=== PATIENT | male | born 1985 | race Caucasian/White ===

== ENCOUNTER → 2018-03-10 09:22 | Outpatient (CLI) | payer OTHER, SELFPAY ==
[2015-07-11 14:18] VITALS: BMI 36.3
[2018-03-10 10:57] LABS: Anion Gap 8 (5-15); BUN 19 mg/dL (7-18); BUN/Creat Ratio 20.3 RATIO (10-20); Calcium,Total 8.3 mg/dL (8.5-10.1); Chloride 104 mmol/L (98-107); Cholesterol 159 mg/dL (200); Creatinine, Serum 0.94 mg/dL (0.70-1.30); EST Glomerular Filtration Rate 98 mL/min (>60); Est Glom Filt Rate - Afr Amer 118 mL/min (>60); Glucose 84 mg/dL (74-106); High Density Lipoprotein 33 mg/dL; Potassium 3.7 mmol/L (3.5-5.1); Sodium Level 138 mmol/L (136-145); Thyroid Stim Hormone (TSH) 1.38 uIU/mL (0.358-3.74); Triglycerides 87 mg/dL; Very Low Density Lipoprotein 17 mg/dL (5-40)
== END ==
PROVIDERS: Family Provider Family Medicine; PCP Family Medicine; Visit Provider Family Medicine
DX: Z00.00 Encounter for general adult medical examination without abnormal findings (principal)
CPT/HCPCS: 36415; 80048; 80061; 84443

== ENCOUNTER → 2018-10-02 | Outpatient (CLI) | payer OTHER, SELFPAY ==
[2018-10-02 11:46] VITALS: BMI 36.3
--- NOTE | 2018-10-02 11:59 | RAD_ITS ---
STUDY: X-RAY - RIGHT ANKLE REASON FOR EXAM: Male, 33 years old. Pain and swelling posteriorly TECHNIQUE: 3 view(s) of the ankle. COMPARISON: None. FINDINGS: Normal visualized distal tibia and fibula. Normal medial and lateral malleoli. Normal tibiotalar articulation and ankle mortise. Normal visualized talus and calcaneus. The visualized subtalar, talonavicular, calcaneocuboid and tarsal articulations are normal. The soft tissue structures are unremarkable. RAD/Ankle min 3 Views IMPRESSION: Normal x-ray examination of the ankle. Electronically Signed: Narciso Sweeney MD at 12:48 EDT , Service support ,
== END | disposition home or self-care (01) ==
LOC: HPRAD 11:58
PROVIDERS: Family Provider Family Medicine; PCP Family Medicine; Referring Provider Orthopaedic Surgery; Visit Provider Orthopaedic Surgery
DX: M25.571 Pain in right ankle and joints of right foot (principal)
CPT/HCPCS: 73610

== ENCOUNTER 2018-11-20 16:30 | Outpatient (RCR) | payer OTHER, SELFPAY ==
[2018-10-02 11:46] VITALS: BMI 36.3
--- NOTE | 2018-10-23 12:07 | HP.PTEVAL ---
Patient's Visit Information MARSHALL BARAHONA is a 33 year old M referred to Physical Therapy by Joe Whitaker DO with a diagnosis of R achilles tendonitis. Date of Evaluation: 10/09/18 Physical Therapist: Maximiliano Platt DPT - Visit Plan Frequency: 1-2x /Week Duration: 4 Weeks Plan: Start with graston to achilles, stretching to achilles G/S, eccentric loading and US as needed. - Subjective Findings: Pt. is here today for his initial evaluation for his achilles tendonitis. Pt. reports having progressively worsening pain for 4-6 month. pt. reports no mechanism of injury. Pt. denies N/T. Pt. reports increased tenderness with walking, initially walking, and stretching his achilles. 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 Pt. has done some exercise, but not much. Pt. is hopeful to get back to all recreational activiteis without limitations. - Pain Rt achilles tendon Pain Intensity (Out of 10): 2 Pain Intensity Range: 1, 4 - Objective POSTURE: Pt. has slight equinus positioning of foot, slight pes planus in stance. with knee valgus positiononig. PALPATION: Pt. has increased tendereness with palpation of achilles. He does have a inctrased tissue mass at mid achilles tendon and is tender in this region. NEURO: Pt. has normal sensation and DTR of bilaterally. ROM: Pt. has decreased ROM of R ankle DF 8deg. Rest is normal. Normal L ankle ROM. MMT: Pt. has normal ankle strength bilaterally except 5-/5 R plantar flexion (Mild incerase in symptoms with eccentric lowering). GAIT: Pt. has hip ER, vaglus knee positoning, over pronation in stance phase. Pt. has antalgic pattern. STAIRS: increased difficulty with descending, early heel off. SPECIAL TESTING: Pt. negative for all ankle/foot special testing. - Goals Goal 1:: Pt. to be I with HEP. Goal Time Frame: 4-6 Weeks Goal 2:: Pt. to have increased ankle ROM of R ankle to 15deg of DF. Goal Time Frame: 4-6 Weeks Goal 3:: Pt. to walking with increased pattern with out increase in symptoms. Goal Time Frame: 4-6 Weeks Goal 4:: Pt. to have no pain with palpation of R achilles tendon. Goal Time Frame: 4-6 Weeks Goal 5:: Pt. to complete all ADLs and recreational activities without increase in symptoms. Goal Time Frame: 4-6 Weeks - Rehabilitation Potential Physical Therapy Diagnosis: Pt. has signs and symptoms lf achilles tendonitis. Pt. would benefit from PT to increase achilles tendon lenfth, strength adn controlled eccentric strengthening. Rehabilitation Potential: Excellent - Anticipated Interventions Patient/Client Instruction: Educate patient on: Condition, Plan of Care, Risk Factors, Benefits of Fitness Program For the Purpose of:: To facilitate caregiver knowledge, To improve self management, To prevent re-injury, To improve ability to perform tasks related to life management, To improve tolerance to ADL's Therapeutic Exercise to Include: Strength training, Power training, Balance training, Flexibilty training, Gait and locomotor training, Passive ROM For the Purpose of:: To decrease pain, To increase ROM, To improve nutrient delivery to tissue, To improve muscle performance and motor function, To improve gait and locomotor functions, To improve health of tissue, To decrease soft tissue restriction, To increase flexibility/ROM Manual Therapy Techniques to Include: Mobilization, Functional dry needling, Soft tissue mobilization For the Purpose of:: To decrease pain, To decrease swelling/inflammation, To increase ROM Ultrasound (thermal/non thermal): Yes For the Purpose of:: To decrease pain, To decrease swelling/inflammation, To increase ROM Thank you for the opportunity to evaluate your patient. For Medicare and Medicare HMO plans, please review the plan of care and approve it. It will need to be FAXED BACK to us at [phone] for Medicare purposes. For Medicare only, by signing this I certify the plan of care. Please let me know if there are questions or concerns regarding this plan of care. Physician Signature: Date:
== END 2018-11-20 19:00 | disposition home or self-care (01) ==
LOC: PT 16:30
PROVIDERS: Family Provider Family Medicine; PCP Family Medicine; Referring Provider Orthopaedic Surgery; Visit Provider Orthopaedic Surgery
DX: M76.61 Achilles tendinitis, right leg (principal)
CPT/HCPCS: 97035; 97110; 97161

== ENCOUNTER → 2021-02-16 16:24 | Outpatient (CLI) | payer OTHER, SELFPAY ==
--- NOTE | 2021-02-16 16:30 | RAD_ITS ---
STUDY: X-RAY - RIGHT KNEE REASON FOR EXAM: Male, 36 years old. Right knee pain. TECHNIQUE: 4 view(s) of the knee. COMPARISON: None. FINDINGS: Normal visualized distal femur. Normal visualized proximal tibia and fibula. Normal proximal tibiofibular articulation. Superior patellar spur. Moderate medial arthrosis with osteophyte formation. Marked lateral compartmental arthrosis with osteophytes. Moderate arthrosis of the patellofemoral compartment with osteophyte formation. Fragmentation of the tibial tubercle. Focal ossification behind the distal patellar tendon within Hoffa''s fat pad which may represent an intra-articular osteochondral body. RAD/Knee 4 or More Views IMPRESSION: Superior patellar spur. 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 Fragmentation of the tibial tubercle. Probable small intra-articular osteochondral body as described. Electronically Signed: Rodolfo Tellez MD at 9:38 EST , Service support ,
== END ==
PROVIDERS: PCP Family Medicine; Referring Provider Family Medicine; Visit Provider Family Medicine
DX: M25.561 Pain in right knee (principal)
CPT/HCPCS: 73564

== ENCOUNTER → 2021-02-18 10:52 | Outpatient (CLI) | payer OTHER, SELFPAY ==
[2021-02-18 13:27] LABS: Anion Gap 3 (5-15); BUN 13 mg/dL (7-18); BUN/Creat Ratio 13.9 RATIO (10-20); Calcium,Total 8.9 mg/dL (8.5-10.1); Chloride 105 mmol/L (98-107); Cholesterol 179 mg/dL (200); Creatinine, Serum 0.94 mg/dL (0.70-1.30); EST Glomerular Filtration Rate 97 mL/min (>60); Est Glom Filt Rate - Afr Amer 117 mL/min (>60); Glucose 80 mg/dL (74-106); High Density Lipoprotein 34 mg/dL; Potassium 3.9 mmol/L (3.5-5.1); Sodium Level 138 mmol/L (136-145); Thyroid Stim Hormone (TSH) 1.27 uIU/mL (0.358-3.74); Triglycerides 125 mg/dL; Very Low Density Lipoprotein 25 mg/dL (5-40)
== END ==
PROVIDERS: PCP Family Medicine; Referring Provider Family Medicine; Visit Provider Family Medicine
DX: Z00.00 Encounter for general adult medical examination without abnormal findings (principal)
CPT/HCPCS: 36415; 80048; 80061; 84443

== ENCOUNTER 2021-04-07 09:28 | Outpatient (CLI) | payer OTHER, SELFPAY ==
--- NOTE | 2021-04-06 08:00 | VAS_PTH ---
PATIENT: MARSHALL BARAHONA [facility] U#:[id number] AGE/SX: 36/M ROOM: RE04/07/[address]: Dr. Nnamdi Campbell MD : 1985 BED: DIS: 04/07/2021 SPEC #: [id number] RECD: 04/06/21 11:14 STATUS: SARA LOREE #: [id number] MEKA: 04/06/21 08:[address]: Nnamdi Campbell DEPT: SURGICAL PATHOLOGY RECD BY: Irene Vázquez ENTERED: 04/07/21 09:42 SP TYPE: VAS OTHR DR: Dr. Ronny Perales MD Tissues: A - Vas deferens, NOS B - Vas deferens, NOS Procedures: Surgery Specimen Level II HEADER OPERATION: Bilateral partial vasectomy PRE-OP DIAGNOSIS: Sterilization TISSUE SUBMITTED: A ? Right vas deferens, B ? Left vas deferens MICROSCOPIC DIAGNOSIS A. Right vas deferens, segmental vasectomy: Complete segment of vas deferens with no pathologic change. B. Left vas deferens, segmental vasectomy: Complete segment of vas deferens with no pathologic change. AM:jose angel 04/07/2021 MICROSCOPIC DESCRIPTION Slides are reviewed. GROSS DESCRIPTION A - Received is one container designated right vas deferens. The specimen consists of a tubular segment of tucker soft tissue measuring 1.2 cm in length and 0.3 cm in diameter. The specimen is sectioned and submitted entirely in one cassette. B - Received is one container designated left vas deferens. The specimen consists of a tubular segment of tucker soft tissue measuring 1.2 cm in length and 0.3 cm in diameter. The specimen is sectioned and submitted entirely in one cassette. / SJ:jose angel 04/06/21 TC:4 CPT: 79700 x2
== END 2021-04-07 23:59 | disposition short-term general hospital (02) ==
LOC: LABSPEC 09:32
PROVIDERS: PCP Family Medicine; Referring Provider Surgery; Visit Provider Surgery
DX: Z30.2 Encounter for sterilization (principal)
CPT/HCPCS: 88302

== ENCOUNTER 2021-05-26 16:36 | Outpatient (CLI) | payer OTHER, SELFPAY ==
[2021-05-27 15:11] LABS: Semen Analysis Post Vas REVIEWED
== END 2021-05-26 23:59 | disposition home or self-care (01) ==
LOC: LABSPEC 16:39
PROVIDERS: PCP Family Medicine; Referring Provider Surgery; Visit Provider Surgery
DX: Z30.2 Encounter for sterilization (principal)
CPT/HCPCS: 89321

== ENCOUNTER → 2024-03-08 | Outpatient (CLI) | payer OTHER, SELFPAY ==
--- NOTE | 2024-03-08 11:44 | RAD_ITS ---
INDICATION: PAIN EXAMINATION/TECHNIQUE: X-RAY - RIGHT XR Knee Complete 4 Views or More 4 VIEWS COMPARISON: Prior study dated: 02/16/2021 FINDINGS: BONES: No fracture demonstrated. Marked joint space narrowing all 3 compartments with subchondral sclerosis and osteophytes, not significantly changed. JOINTS: No dislocation. SOFT TISSUES: Unremarkable. RAD/Knee 4 or More Views IMPRESSION: No evidence of fracture. Extensive degenerative changes. Electronically Signed: Yvette Ayala MD at 7:55 EST ,
== END | disposition home or self-care (01) ==
PROVIDERS: PCP Family Medicine; Referring Provider Family Medicine; Visit Provider Family Medicine
DX: Z00.00 Encounter for general adult medical examination without abnormal findings (principal); M25.561 Pain in right knee
CPT/HCPCS: 73564

== ENCOUNTER → 2025-03-13 | Outpatient (CLI) | payer OTHER, SELFPAY ==
[2025-03-13 18:14] LABS: AST(SGOT) 27 U/L (<=37); Alanine Aminotransfer ALT/SGPT 34 U/L (<=46); Albumin, Serum 4.6 g/dL (3.5-5.0); Alkaline Phosphatase 45 U/L (40-129); Anion Gap 15 (5-15); BUN 13 mg/dL (4-19); BUN/Creat Ratio 16.4 RATIO (10-20); Calcium,Total 9.5 mg/dL (7.6-11.0); Carbon Dioxide 24.7 mmol/L (21.0-32.0); Chloride 102 mmol/L (98-108); Globulin 2.9 g/dL (2.2-4.2); Glucose 83 mg/dL (70-99); Potassium 3.5 mmol/L (3.3-5.1)
[2025-03-13 20:25] LABS: Cholesterol 180 mg/dL (<=200); Low Density Lipoprotein Calc. 123 mg/dL; Triglycerides 109 mg/dL; Very Low Density Lipoprotein 22 mg/dL (5-40); cholesterol:hdl ratio screen 4.85
== END | disposition home or self-care (01) ==
LOC: MTLAB 15:36
PROVIDERS: PCP Family Medicine; Referring Provider Family Medicine; Visit Provider Family Medicine
DX: Z00.00 Encounter for general adult medical examination without abnormal findings (principal)
CPT/HCPCS: 36415; 80053; 80061